=== PATIENT | female | born 1935 | race Caucasian/White ===

== ENCOUNTER 2020-08-20 14:55 | Emergency (ER) | payer MEDICARE ==
[~2020-08-20] VITALS: Ht 160 cm; Wt 59.1 kg
[2020-08-20] MEDS: IV NORMAL SALINE 1,000ML 1,000 ML IV ONE (15:22)
[2020-08-20 15:49] LABS: BASO # 0.1 x10^3/uL (0.0-0.2); BASO % 1 % (0-3); EOS % 0 % (0-3); HEMOGLOBIN 11.2 g/dL (12.0-15.5); LYMPH # 0.9 x10^3/uL (1.0-4.8); LYMPH % 9 % (24-48); MEAN CORPUSCULAR HEMOGLOBIN 32 pg (25-35); MEAN CORPUSCULAR HGB CONC 34 g/dL (31-37); MEAN CORPUSCULAR VOLUME 95 fL (79-100); MONO # 0.7 x10^3/uL (0.0-1.1); MONO % 7 % (0-9); NEUT # 8.3 x10^3uL (1.8-7.7); NEUT % 83 % (31-73); PLATELET COUNT 314 x10^3/uL (140-400); RED BLOOD COUNT 3.48 x10^6/uL (3.50-5.40); RED CELL DISTRIBUTION WIDTH 12.7 % (11.5-14.5); WHITE BLOOD COUNT 9.9 x10^3/uL (4.0-11.0)
[2020-08-20 16:09] LABS: CALCIUM 8.4 mg/dL (8.5-10.1); GFR 23.6; POTASSIUM 4.3 mmol/L (3.5-5.1)
[2020-08-20 16:14] LABS: ALBUMIN/GLOBULIN RATIO 0.7 (1.0-1.7); MAGNESIUM 1.8 mg/dL (1.8-2.4); TOTAL BILIRUBIN 0.6 mg/dL (0.2-1.0); TOTAL PROTEIN 7.2 g/dL (6.4-8.2)
[2020-08-20] MEDS: ASPIRIN ENTERIC COATED 325 MG TABLET.DR. PO ONE (16:30)
[2020-08-20] MEDS ORDERED: ASPIRIN 325 MG TABLET ONE (16:30)
--- NOTE | 2020-08-20 16:33 | EKG ---
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
--- NOTE | 2020-08-20 16:52 | RAD ---
Exam Date: 08/20/2020 4:30 PM XR CHEST 1V Indication: Reason: SOA, cough, known COVID / Spl. Instructions: / History: FINDINGS/ IMPRESSION: Aorta is calcified. There are prominent bilateral interstitial markings which are nonspecific but cou ld be chronic or represent interstitial edema or interstitial pneumonia. Patchy infiltrates and/or at electasis are seen in the midlung palacios bilaterally and in the left lung base. No appreciable pleura l effusion or pneumothorax. Biapical scarring is noted. The cardiac silhouette and pulmonary vasculature are within normal limits. Electronically signed by: Chuy Guajardo MD (08/20/2020 4:50 PM) [id number]
--- NOTE | 2020-08-20 16:56 | EKG ---
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
[2020-08-20] MEDS: dilTIAZem 25 MG/5 ML VIAL IVP ONE (17:00)
--- NOTE | 2020-08-20 17:00 | EKG ---
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
[2020-08-20 17:07] LABS: BACTERIA,URINE 0 /HPF (0-FEW); BILIRUBIN,URINE NEG (NEG); CLARITY,URINE CLEAR; COLOR,URINE YELLOW; GLUCOSE,URINE NEG (NEG); NITRITE,URINE NEG (NEG); RBC,URINE 0 /HPF (0-2); SQUAMOUS EPITHELIAL CELL,UR MANY /LPF; UROBILINOGEN,URINE 0.2 mg/dL (0.2 mg/dL); WBC,URINE 0 /HPF (0-4)
[2020-08-20] MEDS: dilTIAZem VIAL 125 MG in IV NORMAL SALINE 100ML 100 ML IV PRN (17:08)
[2020-08-20 17:48] VITALS: BP 122/70
--- NOTE | 2020-08-20 17:55 | PHYS DOC ---
Past History Past Medical History: Cancer, Diabetes, Pancreatitis Past Surgical History: Cancer Surgery Smoking: Non-smoker Alcohol Use: None Drug Use: None General Adult EDM: Chief Complaint: COUGH HPI: HPI: 85-year-old female presents with report of progressive generalized malaise and weakness, fatigue, fevers, nonproductive cough, and shortness of air that has been worse over the last 3 days. Patient has had recent diagnosis of a positive COVID-19 on 08/15/2020. Patient reports she is unsure where she came in contact with anyone that was positive. Patient reports symptoms became worse today on her birthday and became concerned and therefore she presented to the ER for further evaluation. Denies any trauma. Patient denies any chest pain. Denies leg swelling or calf tenderness. Denies history of PE/DVT. Review of Systems: Review of Systems: Constitutional: Reports fever, chills, and generalized malaise/weakness Eyes: Denies redness or eye pain HENT: Denies nasal congestion or sore throat Respiratory: Reports cough and shortness of breath Cardiovascular: Denies chest pain or palpitations GI: Denies abdominal pain, nausea, or vomiting : Denies dysuria or hematuria Musculoskeletal: Denies back pain or joint pain Integument: Denies rash or skin lesions Neurologic: Denies headache, focal weakness or sensory changes; reports generalized weakness Complete systems were reviewed and found to be within normal limits, except as documented in this note. Current Medications: Current Meds: Current Medications Medications (Trade) Dose Ordered Sig/[facility] Start Time Stop Time Status Last Admin Dose Admin Aspirin (Aspirin Enteric Coated) 325 mg 1X ONCE 08/20/20 16:30 08/20/20 16:45 DC 08/20/20 16:30 325 MG Aspirin (Liz Aspirin) 325 mg STK-MED ONCE 08/20/20 16:30 08/20/20 16:31 DC Azithromycin 500 mg/Sodium Chloride 250 ml @ 250 mls/hr 1X ONCE 08/20/20 17:30 08/20/20 18:29 Diltiazem HCl (Cardizem Iv Push) 10 mg 1X ONCE 08/20/20 17:00 08/20/20 17:01 DC 08/20/20 17:00 10 MG Diltiazem HCl 125 mg/Sodium Chloride 125 ml @ 5 mls/hr CONT PRN 08/20/20 16:45 08/20/20 17:08 5 MLS/HR Sodium Chloride 1,000 ml @ 1,000 mls/hr 1X ONCE 08/20/20 15:15 08/20/20 16:45 DC 08/20/20 15:22 1,000 MLS/HR Allergies: Allergies: Allergies Coded Allergies Type Severity Reaction Last Updated Verified loperamide Allergy Intermediate 08/20/20 Yes Physical Exam: PE: Constitutional: Elderly, well nourished, no acute distress, non-toxic appearance HENT: Normocephalic, atraumatic Eyes: Conjunctiva normal, no discharge Neck: Normal range of motion, no tenderness, supple, no meningeal signs Lungs & Thorax: No respiratory distress, equal chest rise and fall Abdomen: Soft, no tenderness, no guarding/rebound tenderness/distention Skin: Warm, dry, no erythema, no rash Extremities: No tenderness, ROM intact, no edema Neurologic: Alert and oriented X 3, normal motor function, normal sensory function, no focal deficits noted Psychologic: Affect normal, judgment normal Current Patient Data: Labs: Laboratory Tests Test 08/20/20 15:16 08/20/20 15:23 08/20/20 16:13 Glucose (Fingerstick) 292 mg/dL (70-99) H White Blood Count 9.9 x10^3/uL (4.0-11.0) Red Blood Count 3.48 x10^6/uL (3.50-5.40) L Hemoglobin 11.2 g/dL (12.0-15.5) L Hematocrit 33.0 % (36.0-47.0) L Mean Corpuscular Volume 95 fL (79-100) Mean Corpuscular Hemoglobin 32 pg (25-35) Mean Corpuscular Hemoglobin Concent 34 g/dL (31-37) Red Cell Distribution Width 12.7 % (11.5-14.5) Platelet Count 314 x10^3/uL (140-400) Neutrophils (%) (Auto) 83 % (31-73) H Lymphocytes (%) (Auto) 9 % (24-48) L Monocytes (%) (Auto) 7 % (0-9) Eosinophils (%) (Auto) 0 % (0-3) Basophils (%) (Auto) 1 % (0-3) Neutrophils # (Auto) 8.3 x10^3uL (1.8-7.7) H Lymphocytes # (Auto) 0.9 x10^3/uL (1.0-4.8) L Monocytes # (Auto) 0.7 x10^3/uL (0.0-1.1) Eosinophils # (Auto) 0.0 x10^3/uL (0.0-0.7) Basophils # (Auto) 0.1 x10^3/uL (0.0-0.2) D-Dimer (Natividad) 0.72 mg/L (0.00-0.50) H Sodium Level 134 mmol/L (136-145) L Potassium Level 4.3 mmol/L (3.5-5.1) Chloride Level 100 mmol/L (98-107) Carbon Dioxide Level 17 mmol/L (21-32) L Anion Gap 17 (6-14) H Blood Urea Nitrogen 50 mg/dL (7-20) H Creatinine 2.0 mg/dL (0.6-1.0) H Estimated GFR (Cockcroft-Gault) 23.6 BUN/Creatinine Ratio 25 (6-20) H Glucose Level 258 mg/dL (70-99) H Lactic Acid Level 1.1 mmol/L (0.4-2.0) Calcium Level 8.4 mg/dL (8.5-10.1) L Magnesium Level 1.8 mg/dL (1.8-2.4) Total Bilirubin 0.6 mg/dL (0.2-1.0) Aspartate Amino Transferase (AST) 30 U/L (15-37) Alanine Aminotransferase (ALT) 24 U/L (14-59) Alkaline Phosphatase 58 U/L (46-116) Creatine Kinase 112 U/L (26-192) Creatine Kinase MB (Mass) 0.9 ng/mL (0.0-3.6) Creatine Kinase MB Relative Index 0.8 % (0-4) Troponin I Quantitative 0.109 ng/mL (0-0.055) H CI-Zjc-[id number]-Type Natriuretic Peptide 1376 pg/mL (0-449) H Total Protein 7.2 g/dL (6.4-8.2) Albumin 3.0 g/dL (3.4-5.0) L Albumin/Globulin Ratio 0.7 (1.0-1.7) L Urine Collection Type Unknown Urine Color Yellow Urine Clarity Clear Urine pH 5.5 Urine Specific [place] 1.015 Urine Protein 30 mg/dl (NEG-TRACE) Urine Glucose (UA) Neg mg/dL (NEG) Urine Ketones (Stick) Trace mg/dL (NEG) Urine Blood Trace (NEG) Urine Nitrite Neg (NEG) Urine Bilirubin Neg (NEG) Urine Urobilinogen Dipstick 0.2 mg/dL (0.2 mg/dL) Urine Leukocyte Esterase Neg (NEG) Urine RBC 0 /HPF (0-2) Urine WBC 0 /HPF (0-4) Urine Squamous Epithelial Cells Many /LPF Urine Bacteria 0 /HPF (0-FEW) Vital Signs: Vital Signs Date Time Temp Pulse Resp B/P (MAP) Pulse Ox O2 Delivery O2 Flow Rate FiO2 08/20/20 17:48 146 21 122/70 (87) 94 08/20/20 14:59 98.2 EKG: EKG: @1525 NSR at 87bpm, NO ST elevation, PACs, t wave inversion I and aVL. QRS 124ms, QT/QTc 378/455ms @1648 SVT at 138bpm, occasional PVC, NO ST elevation, ST depression V5-V6 and twave inversion I and aVL, QRS 118ms, QT/QTc 318/489ms Radiology/Procedures: Radiology/Procedures: PROCEDURE: CHEST AP ONLY Exam Date: 08/20/2020 4:30 PM XR CHEST 1V Indication: Reason: SOA, cough, known COVID / Spl. Instructions: / History: FINDINGS/ IMPRESSION: Aorta is calcified. There are prominent bilateral interstitial markings which are nonspecific but could be chronic or represent interstitial edema or interstitial pneumonia. Patchy infiltrates and/or atelectasis are seen in the midlung palacios bilaterally and in the left lung base. No appreciable pleural effusion or pneumothorax. Biapical scarring is noted. The cardiac silhouette and pulmonary vasculature are within normal limits. Electronically signed by: Chuy Guajardo MD (08/20/2020 4:50 PM) [id number] Heart Score: C/O Chest Pain: No HEART Score for Chest Pain: HEART Score for Chest Pain Response (Comments) Value History Slighlty/Non-Suspicious 0 ECG Normal 0 Age > 65 2 Risk Factors 1 or 2 Risk Factors 1 Troponin >3 x Normal Limit 2 Total 5 Risk Factors: Risk Factors: DM, Current or recent (<one month) smoker, HTN, HLP, family history of CAD, obesity. Risk Scores: Score 0 - 3: 2.5% MACE over next 6 weeks - Discharge Home Score 4 - 6: 20.3% MACE over next 6 weeks - Admit for Clinical Observation Score 7 - 10: 72.7% MACE over next 6 weeks - Early Invasive Strategies Course & Med Decision Making: Course & Med Decision Making Pertinent Labs and Imaging studies reviewed. (See chart for details) Elderly patient presents on her birthday with report of generalized malaise/weakness, shortness of breath, and cough. Patient recently diagnosed with COVID-19 on 08/15/2020. Sats stable upon arrival. Telemetry monitoring in place. Patient noted to have frequent runs of PSVT with conversion back to normal sinus rhythm. Patient continued to do so several times while in the department. Decision to not administer adenosine but rather initiate Cardizem bolus/drip. Cardizem with interval improvement. Labs obtained and posted to chart. Troponin 0.1. D-dimer elevated but less than age corrected level of 0.86. D-dimer therefore less likely. Chest x-ray with signs of patchy infiltrates. Concern for COVID-19. Empiric antibiotics given with azithromycin. Patient requiring admission for further evaluation and treatment including close cardiac monitoring. Decision given elevated troponin to transfer patient to [facility] where there is a cardiac Automobile U[employer]ol[employer] Trim Installer if needed. Discussed with Dr. Holt (hospitalist at [facility]) who is in agreement with transfer for admission. Discussed option of heparin with Dr. Holt. Given indeterminate troponin and patient denying chest pain, decision that Dr. Holt will trend troponins and to hold heparin at this time. Discussed findings and plan with patient, who acknowledges understanding and agreement. COVID-19 CRITERIA: The patient was evaluated during the global COVID-19 pandemic, and that diagnosis was suspected/considered upon their initial presentation. Their evaluation, treatment and testing was consistent with current guidelines for patients who present with complaints or symptoms that may be related to COVID-19. Dragon Disclaimer: Dragaubrie Disclaimer: This electronic medical record was generated, in whole or in part, using a voice recognition dictation system. Departure Departure: Impression: Primary Impression: PSVT (paroxysmal supraventricular tachycardia) Additional Impressions: Elevated troponin Pneumonia due to 2019 novel coronavirus Disposition: 02 DC/TRF OTHER SHORT TERM HOS ([facility]- Dr. Holt (hospitalist) accepting) Condition: STABLE Referrals: PAUL COPPOLA (PCP) COVID-19 Assessment COVID-19 Patient Risks: Age 65 or older: Yes Sign of co-morbidity: Yes Exp to person + for COVID: No Exp to PUI: No Travel from affected area: No Lower respiratory symptoms: Yes Fever: Yes Other: Yes (Patient is known positive) PPE Use: Full PPE with N95 mask or PAPR: Yes Critical Care Time Critical care time was 30 minutes which includes time at bedside, spent in di scussion of patient's care with specialists and/or family members, with interpretation of laboratory and/or radiological studies and is exclusive of procedures. GREGG RUTH DO Aug 20, 2020 17:55
[2020-08-20] MEDS ORDERED: IV NORMAL SALINE 250ML 250 ML ONE (18:11)
[2020-08-20] MEDS ORDERED: AZITHROMYCIN 500 MG VIAL. IV ONE (18:11)
[2020-08-20] MEDS: AZITHROMYCIN 500 MG in IV NORMAL SALINE 250ML 250 ML IV ONE (18:25)
[2020-08-21 19:38] LABS: FREE T4 1.4 ng/dL (0.76-1.46); THYROID STIM HORMONE (TSH) 1.679 uIU/mL (0.358-3.740)
== END 2020-08-20 20:34 | disposition short-term general hospital (02) ==
LOC: ER 14:55
DX: U07.1 COVID-19 (principal); R06.02 Shortness of breath; J12.82 Pneumonia due to coronavirus disease 2019; I47.1 Supraventricular tachycardia; R77.8 Other specified abnormalities of plasma proteins; E11.9 Type 2 diabetes mellitus without complications; Z88.8 Allergy status to other drugs, medicaments and biological substances
CPT/HCPCS: 36415; 71045; 80053; 81001; 82553; 82947; 83605; 83735; 83880; 84439; 84443; 84481; 84484; 85025; 85379; 87040; 93005; 96361; 96365; 96376; 99285; J0456; J3490; J7030; J7050